=== PATIENT | female | born 1970 | race African-American/Black ===

== ENCOUNTER → 2017-09-17 | Outpatient (CLI) | payer OTHER ==
--- NOTE | 2017-09-17 09:45 | MM ---
Reason for exam: additional evaluation requested from abnormal screening. Last mammogram was performed 1 month ago. History: Took hormonal contraceptives for 5 years beginning at age 21. Physical Findings: Nurse did not find any significant physical abnormalities on exam. MG 3D Work Up W/Cad ALLYN Bilateral ML and spot compression CC view(s) were taken. Prior study comparison: August 29, 2017, bilateral MG screening mammo w CAD. April 03, 2015, bilateral MG screening mammo w CAD. There is no discrete abnormality including area of concern. These results were verbally communicated with the patient and result sheet given to the patient on 09/17/17. ASSESSMENT: Benign, BI-RAD 2 RECOMMENDATION: Return to routine screening mammogram schedule for both breasts.
== END | disposition home or self-care (01) ==
LOC: RADMAMWWP 07:35
PROVIDERS: ATTEND Family Medicine
DX: R92.8 Other abnormal and inconclusive findings on diagnostic imaging of breast (principal)
CPT/HCPCS: 77066; G0279

== ENCOUNTER → 2017-09-17 | Outpatient (CLI) | payer OTHER ==
--- NOTE | 2017-09-17 13:11 | BD ---
EXAMINATION TYPE: MG DEXA axial skeleton. DATE OF EXAM: 09/17/2017 COMPARISON: NONE CLINICAL HISTORY: Height: 5 FT 5 1/2 IN Weight: 161 FRAX RISK QUESTIONS: Alcohol (3 or more units per day): NO Family History (Parent hip fracture): NO Glucocorticoids (More than 3mos): NO (Ex: prednisone, prednisolone, methylprednisolone, dexamethasone, and hydrocortisone). History of Fracture in Adulthood: NO Secondary Osteoporosis: 1. Type 1 Diabetes: NO 2. Hyperthyroidism: YES (PARA) 3. Menopause before 45: NA 4. Malnutrition: NO 5. Chronic liver disease: NO Rheumatoid Arthritis: NO Current Tobacco Use: YES RISK FACTORS HISTORY OF: Active: YES Postmenopausal woman: NA If Premenopausal, do you have irregular periods: NO Hyperparathyroidism: YES MEDICATIONS: Thyroid Medications: YES Which medication: LEVOTHYROXINE How Lon YEARS Additional Medications: NORVASC, LISINOPRIL, METROPOLOL, LEVOTHYROXINE, BABY ASPIRIN, ADIVAN, TRASOD ONE,VIT D Additional History: EXAM MEASUREMENTS: Bone mineral densitometry was performed using the [facility]. Bone mineral density as measured about the Lumbar spine is: ----- L1-L4(G/cm2): 1.366 T Score Values are as follows: ----- L2: 1.6 ----- L3: 1.8 ----- L4: 1.2 ----- L1-L4: 1.6 BASELINE Bone mineral density about the R hip (g/cm2): 1.258 Bone mineral density about the L hip (g/cm2): 1.213 T Score values are as follows: -----R Neck: 1.6 -----L Neck: 1.3 -----R Total: 1.8 -----L Total: 1.7 BASELINE IMPRESSION: No evidence for osteoporosis or osteopenia. NOTE: T-SCORE=SD OF THE YOUNG ADULT MEAN.
== END | disposition home or self-care (01) ==
LOC: RADBDWWP 07:41
PROVIDERS: ATTEND Surgery
DX: E21.0 Primary hyperparathyroidism (principal)
CPT/HCPCS: 77080

== ENCOUNTER → 2018-01-29 | Outpatient (CLI) | payer OTHER ==
[2018-01-29 11:44] LABS: Basophils % (A) 1 %; Eosinophils # (A) 0.1 k/uL (0-0.7); Eosinophils % (A) 3 %; HCT 40.4 % (34.0-46.0); Lymphocytes # (A) 1.7 k/uL (1.0-4.8); Lymphocytes % (A) 38 %; MCH 29.8 pg (25.0-35.0); MCHC 32.3 g/dL (31.0-37.0); MCV 92.1 fL (80.0-100.0); Mean Platelet Volume 7.5; Monocytes # (A) 0.3 k/uL (0-1.0); Monocytes % (A) 6 %; Neutrophils # (A) 2.3 k/uL (1.3-7.7); Neutrophils % (A) 51 %; Platelet Count 227 k/uL (150-450); RBC 4.38 m/uL (3.80-5.40); RDW 13.8 % (11.5-15.5); WBC 4.5 k/uL (3.8-10.6)
== END | disposition home or self-care (01) ==
LOC: LABPAT 10:26
PROVIDERS: ATTEND Obstetrics & Gynecology Obstetrics
DX: Z01.812 Encounter for preprocedural laboratory examination (principal); I10 Essential (primary) hypertension; N92.0 Excessive and frequent menstruation with regular cycle; Z01.818 Encounter for other preprocedural examination
CPT/HCPCS: 36415; 85025; 93005

== ENCOUNTER 2018-02-09 07:48 | Day surgery (SDC) | payer OTHER ==
[2018-01-29 14:52] VITALS: BMI 26.8
--- NOTE | 2018-02-06 09:54 | P.HPOB ---
History of Present Illness H&P Date: 02/06/18 Chief Complaint: menorrhagia This is a pleasant 47yo female G0 that presents with c/o HMB. she states menses are regular in nature q month with a heavy flow, lasting 7 days with clots. she has a h/o of a tubal in the past. she also notes a h/o dysmenorrhea Review of Systems Constitutional: Denies chills, Denies fever Cardiovascular: Denies edema Respiratory: Denies cough, Denies dyspnea Gastrointestinal: Denies constipation, Denies diarrhea Genitourinary: Reports dysmenorrhea, Reports menorrhagia Menstruation: Reports as per HPI, Reports period heavy Past Medical History Past Medical History: Asthma, GERD/Reflux, Hypertension, Thyroid Disorder Additional Past Medical History / Comment(s): INSOMNIA, environmental asthma, small hiatal hernia, IBS, History of Any Multi-Drug Resistant Organisms: None Reported Past Surgical History: Hernia Repair, Orthopedic Surgery, Tubal Ligation Additional Past Surgical History / Comment(s): UMBILICAL AND VENTRAL HERNIAS. LEFT BUNIONECTOMY, LEFT FOOT 2 NEUROMA'S REMOVED, parathyroidectomy, Past Anesthesia/Blood Transfusion Reactions: Motion Sickness Smoking Status: Current every day smoker - Past Family History Mother Family Medical History: Cancer Additional Family Medical History / Comment(s): mult myeloma Brother(s) Family Medical History: Cancer Father Family Medical History: Cancer Daughter(s) Family Medical History: Deep Vein Thrombosis (DVT) Medications and Allergies Home Medications Medication Instructions Recorded Confirmed Type Levothyroxine Sodium [Synthroid] 62.5 mcg PO DAILY 06/21/14 01/29/18 History Aspirin [Adult Low Dose Aspirin EC] 81 mg PO DAILY 01/29/18 01/29/18 History Citracal Tab 2 tab PO DAILY 01/29/18 01/29/18 History Fluticasone Nasal [place] [Flonase 1 spray EA NOSTRIL DAILY PRN 01/29/18 01/29/18 History Nasal [place]] Lisinopril [Prinivil] 20 mg PO QAM 01/29/18 01/29/18 History QUEtiapine [SEROquel] 25 mg PO HS 01/29/18 01/29/18 History amLODIPine [Norvasc] 5 mg PO DAILY 01/29/18 01/29/18 History Allergies Allergy/AdvReac Type Severity Reaction Status Date / Time No Known Allergies Allergy Verified 01/29/18 14:40 Exam Osteopathic Statement: *. No significant issues noted on an osteopathic structural exam other than those noted in the History and Physical/Consult. - OBG Physical Exam Abdomen: soft and NT Abdomen: bowel sounds normal Vagina: normal pink rugae Cervix: normal in appearance with no lesions Uterus: normal size Anus/Rectum: normal perianal skin Assessment and Plan (1) Menorrhagia Status: Acute Code(s): N92.0 - EXCESSIVE AND FREQUENT MENSTRUATION WITH REGULAR CYCLE SNOMED Code(s): 756999975 (2) Dysmenorrhea Status: Acute Code(s): N94.6 - DYSMENORRHEA, UNSPECIFIED SNOMED Code(s): 305176374 Plan: plan H DC EA procedure reviewed and questions answered in detail. risk of uterine perforation noted
[~2018-02-09 07:48] MED LIST: DEXAMETHASONE SOD PHOSPHATE 10 MG/ML 1 ML VIAL IV ONE; HYDROmorphone 0.5 MG/0.5 ML SYRINGE IVP PRN; LACTATED RINGERS 1,000 ML IV SCH; LIDOCAINE 1% 20 ML VIAL (10MG/ML) FOR IV START INTRADERMA PRN; MIDAZOLAM 2 MG/2 ML VIAL IV PRN; MORPHINE SULFATE 2 MG/ML SYRINGE IV PRN; Pre Op ABX Message 1 EACH MISC MISCELLANE ONE; SCOPOLAMINE 1.5MG/72HR PATCH TRANSDERM ONE
[2018-02-09] MEDS ORDERED: LACTATED RINGERS 1,000 ML IV ONE (08:26)
[2018-02-09] MEDS ORDERED: ONDANSETRON 4 MG/2 ML VIAL IVP ONE (08:27)
[2018-02-09] MEDS ORDERED: DEXAMETHASONE SOD PHOSPHATE 4 MG/ML 1 ML VIAL IVP ONE (08:27)
[2018-02-09] MEDS ORDERED: MIDAZOLAM 2 MG/2 ML VIAL ONE (09:44)
[2018-02-09] MEDS ORDERED: PROPOFOL 10 MG/ML 20 ML VIAL IV ONE (09:44)
[2018-02-09] MEDS ORDERED: LIDOCAINE 1% INJ 10MG/ML (20 ML MDV) ONE (09:44)
[2018-02-09] MEDS ORDERED: KETOROLAC 30 MG/ML 1 ML VIAL ONE (09:44)
[2018-02-09] MEDS ORDERED: fentaNYL (PF) 50 MCG/ML 2 ML AMP ONE (09:44)
--- NOTE | 2018-02-09 10:10 | P.OP ---
Date of Procedure: 02/09/18 Preoperative Diagnosis: Menorrhagia Postoperative Diagnosis: Same Procedure(s) Performed: Hysteroscopy, dilation and curettage, endometrial ablation Anesthesia: MAC Surgeon: Demi Lambert Estimated Blood Loss (ml): 5 IV fluids (ml): 500 Urine output (ml): 75 Pathology: other (Endometrial curettings) Condition: stable Disposition: PACU Indications for Procedure: Heavy menstrual bleeding Operative Findings: Normal uterine cavity with proliferative appearing endometrium Description of Procedure: Patient was taken to the operating room after informed consent was obtained in the preoperative area. Patient was taken operating room where general anesthesia was obtained without difficulty by the anesthesia department. She was then prepped and draped in normal sterile fashion in the dorsal lithotomy position. O [place] catheter was then used to drain the bladder of clear yellow urine. A weighted speculum was placed in the posterior vaginal vault the anterior lip of the cervix is visualized and the endocervical canal was then dilated. Hysteroscope was performed and the above noted findings were visualized. At this point a sharp curettage was performed until gritty texture was noted in all 4 quadrants of the endometrial cavity. The endometrial ablation device NovaSure was opened and set the appropriate measurements 5 cm for length 2.64 with 72 power for a total cycle length of 105 seconds. After the device was placed the cavity assessment was completed and passed the cycle was allowed to complete and afterwards device was removed without difficulty. The single-tooth tenaculum was taken off of the anterior lip of the cervix and hemostasis was appreciated. patient tolerated procedure well ARE correct 2 patient was taken the recovery room awake in stable condition
[2018-02-09 10:23] VITALS: RESP 16; TEMP 97
[2018-02-09 11:39] VITALS: BP 163/98; PULSE 70
== END 2018-02-09 11:48 | disposition home or self-care (01) ==
LOC: OR 07:48
PROVIDERS: ATTEND Obstetrics & Gynecology Obstetrics
DX: N85.8 Other specified noninflammatory disorders of uterus (principal); N92.0 Excessive and frequent menstruation with regular cycle; N94.6 Dysmenorrhea, unspecified; I10 Essential (primary) hypertension; J45.909 Unspecified asthma, uncomplicated; F17.210 Nicotine dependence, cigarettes, uncomplicated; K21.9 Gastro-esophageal reflux disease without esophagitis; K58.9 Irritable bowel syndrome, unspecified; Z79.82 Long term (current) use of aspirin; Z79.899 Other long term (current) drug therapy; E89.0 Postprocedural hypothyroidism; Z98.51 Tubal ligation status
CPT/HCPCS: 81025; 88305; 58563; J2250; J1100; J2405; J2001; J3010; J1885; J2704; J1170

== ENCOUNTER → 2020-07-21 | Outpatient (CLI) | payer BC ==
--- NOTE | 2020-07-24 10:21 | MM ---
Reason for exam: screening (asymptomatic). Last mammogram was performed 2 years and 10 months ago. History: Took hormonal contraceptives for 5 years beginning at age 21. Physical Findings: A clinical breast exam by your physician is recommended on an annual basis and results should be correlated with mammographic findings. MG 3D Screening Mammo W/Cad Bilateral CC and MLO view(s) were taken. Prior study comparison: September 17, 2017, bilateral MG 3d work up w/cad ALLYN. August 29, 2017, bilateral MG screening mammo w CAD. The breast tissue is heterogeneously dense. This may lower the sensitivity of mammography. There is no discrete abnormality. No significant changes when compared with prior studies. ASSESSMENT: Negative, BI-RAD 1 RECOMMENDATION: Routine screening mammogram of both breasts in 1 year.
== END | disposition home or self-care (01) ==
LOC: RADMAMWWP 13:37
PROVIDERS: ATTEND Obstetrics & Gynecology Obstetrics
DX: Z12.31 Encounter for screening mammogram for malignant neoplasm of breast (principal)
CPT/HCPCS: 77063; 77067

== ENCOUNTER 2020-09-15 10:27 | Day surgery (SDC) | payer BC ==
[2020-09-11 10:31] VITALS: BMI 29.5
[~2020-09-15 10:27] MED LIST changes: -DEXAMETHASONE SOD PHOSPHATE 10 MG/ML 1 ML VIAL IV ONE; -HYDROmorphone 0.5 MG/0.5 ML SYRINGE IVP PRN; -LIDOCAINE 1% 20 ML VIAL (10MG/ML) FOR IV START INTRADERMA PRN; -MIDAZOLAM 2 MG/2 ML VIAL IV PRN; -MORPHINE SULFATE 2 MG/ML SYRINGE IV PRN; -Pre Op ABX Message 1 EACH MISC MISCELLANE ONE; -SCOPOLAMINE 1.5MG/72HR PATCH TRANSDERM ONE
[2020-09-15] MEDS ORDERED: LIDOCAINE 1% (10MG/ML) FOR IV START INTRADERMA ONE (11:14)
[2020-09-15 11:20] VITALS: TEMP 98.2
[2020-09-15] MEDS ORDERED: PROPOFOL 10 MG/ML 20 ML VIAL IV ONE (11:54)
--- NOTE | 2020-09-15 12:11 | P.PCN ---
Date of Procedure: 09/15/20 Procedure(s) Performed: BRIEF HISTORY: Patient is a 49-year-old pleasant female scheduled for an elective colonoscopy as a part of evaluation of prior history of colon polyps. Last colonoscopy was 6 years ago. PROCEDURE PERFORMED: Colonoscopy snare polypectomy. PREOPERATIVE DIAGNOSIS: History of colon polyps. IV sedation per Anesthesia. PROCEDURE: After informed consent was obtained, the patient, was brought into the endoscopy unit. IV sedation was administered by Anesthesia under continuous monitoring. Digital rectal examination was normal. Initially the Olympus CF-160 flexible video colonoscope was then inserted in the rectum, gradually advanced into the cecum without any difficulty. Careful examination was performed as the scope was gradually being withdrawn. Ileocecal valve and the appendiceal orifice were visualized and appeared normal. Prep was excellent. Mucosa of the cecum, ascending colon, transverse colon, descending colon, sigmoid colon, appeared normal. In the rectum and the sigmoid colon there were 4 small polyps measuring 5-6 cm in size removed by snare polypectomy. Rest of the Rectum appeared normal. Retroflexion was performed in the rectum and no lesions were seen. The patient tolerated the procedure well. IMPRESSION: 4 Small polyps measuring 5-6 mm in size in the proximal rectum and rectum sigmoidstatus post polypectomy Rest of the colon appeared normal. RECOMMENDATIONS: Findings of this examination were discussed with the patient as well as a family.. She was advised to follow with the biopsy results. If the biopsy shows an adenoma she can have a repeat colonoscopy in 5 years
[2020-09-15 12:22] VITALS: BP 133/85; PULSE 93; RESP 12
== END 2020-09-15 12:57 | disposition home or self-care (01) ==
LOC: ORWHC2ENDO 10:27
PROVIDERS: ATTEND Internal Medicine Gastroenterology
DX: Z12.11 Encounter for screening for malignant neoplasm of colon (principal); K62.1 Rectal polyp; Z86.010 Personal history of colon polyps; I10 Essential (primary) hypertension; J45.909 Unspecified asthma, uncomplicated; E11.9 Type 2 diabetes mellitus without complications; E07.9 Disorder of thyroid, unspecified; F41.9 Anxiety disorder, unspecified; F32.9 Major depressive disorder, single episode, unspecified; K21.9 Gastro-esophageal reflux disease without esophagitis; Z98.890 Other specified postprocedural states; Z79.890 Hormone replacement therapy; Z79.899 Other long term (current) drug therapy; Z98.51 Tubal ligation status
CPT/HCPCS: 81025; 88305; 45385; J2704

== ENCOUNTER → 2021-01-19 | Outpatient (CLI) | payer BC ==
--- NOTE | 2021-01-19 23:40 | MR ---
EXAMINATION TYPE: MR knee LT wo con DATE OF EXAM: 01/19/2021 COMPARISON: None HISTORY: Left knee pain x 2 years, prior volleyball injury. Multiplanar multiecho imaging of the left knee was performed without contrast. The anterior and posterior cruciate ligaments are intact. There is a mild knee joint effusion. There is small knee joint effusion. Patella tendon is intact. Patella is intact. The medial and lateral men isci have fairly normal signal pattern. I see no evidence for a tear. The joint spaces are fairly nor mal. The collateral ligaments are intact. I see no bony destructive process. There is minimal subcuta neous edema over the anterior patella tendon. IMPRESSION: There is a very small knee joint effusion. No evidence of meniscal or ligamentous tear.
== END | disposition home or self-care (01) ==
LOC: RADMRIMAIN 11:00
PROVIDERS: ATTEND Orthopaedic Surgery
DX: M25.462 Effusion, left knee (principal)

== ENCOUNTER → 2021-03-01 | Outpatient (CLI) | payer BC ==
[2021-03-01 10:28] LABS: Basophils # (A) 0.1 k/uL (0-0.2); Basophils % (A) 1 %; Eosinophils # (A) 0.1 k/uL (0-0.7); Eosinophils % (A) 2 %; HGB 14.4 gm/dL (11.4-16.0); Lymphocytes # (A) 2.2 k/uL (1.0-4.8); Lymphocytes % (A) 41 %; MCH 31.1 pg (25.0-35.0); MCHC 33.6 g/dL (31.0-37.0); MCV 92.7 fL (80.0-100.0); Mean Platelet Volume 7.7; Monocytes # (A) 0.3 k/uL (0-1.0); Monocytes % (A) 5 %; Neutrophils # (A) 2.6 k/uL (1.3-7.7); Neutrophils % (A) 48 %; Platelet Count 238 k/uL (150-450); RBC 4.63 m/uL (3.80-5.40); WBC 5.3 k/uL (3.8-10.6)
[2021-03-01 10:41] LABS: Potassium 4.2 mmol/L (3.5-5.1)
== END | disposition home or self-care (01) ==
LOC: LABPAT 09:19
PROVIDERS: ATTEND Orthopaedic Surgery
DX: Z01.812 Encounter for preprocedural laboratory examination (principal); M23.92 Unspecified internal derangement of left knee
CPT/HCPCS: 36415; 80051; 85025

== ENCOUNTER 2021-03-08 12:42 | Day surgery (SDC) | payer BC, OTHER ==
[2021-03-06 16:05] VITALS: BMI 29.3
--- NOTE | 2021-03-07 20:34 | HP ---
HISTORY AND PHYSICAL DATE OF SURGERY: 03/08/2021 Prerna Mead is a 50-year-old patient seen with progressive left knee pain. After treatment options were discussed it was decided to proceed with arthroscopy. Consent was obtained. PAST MEDICAL HISTORY: Hypothyroidism, hypertension. PAST SURGICAL HISTORY: Tubal ligation, foot surgery, herniorrhaphy, thyroidectomy. DAILY MEDICATIONS: Levothyroxine, losartan, Mobic, Norvasc, Xanax. ALLERGIES: None. SOCIAL HISTORY: Smokes half pack of cigarettes daily. PHYSICAL EVALUATION OF THE RIGHT KNEE: Range of motion 0 to 130. Mild effusion. Tenderness medial joint line. Positive medial Taylor's. Ligaments stable. Hip rotation without pain. Distal neurovascular exam intact. RADIOGRAPHS: Radiographs of the left knee reveal mild osteoarthritis. MRI left knee revealed a mild effusion. IMPRESSION: 1. Internal derangement of left knee with osteochondral tear. 2. Hypertension. 3. Hypothyroidism. PLAN: Left knee arthroscopy with chondroplasty and debridement. MMODL / IJN: [id number] /
[~2021-03-08 12:42] MED LIST changes: +DEXAMETHASONE SOD PHOSPHATE 4 MG/ML 1 ML VIAL IV ONE; +LIDOCAINE 1% (10MG/ML) FOR IV START INTRADERMA PRN; +ONDANSETRON 4 MG/2 ML VIAL IVP ONE
[2021-03-08] MEDS ORDERED: ONDANSETRON 4 MG/2 ML VIAL ONE (13:10)
[2021-03-08] MEDS ORDERED: SCOPOLAMINE 1.5MG/72HR PATCH TRANSDERM ONE (13:13)
[2021-03-08] MEDS ORDERED: MIDAZOLAM 2 MG/2 ML VIAL IVP ONE ×2 (13:15→13:17)
[2021-03-08] MEDS ORDERED: MIDAZOLAM 2 MG/2 ML VIAL ONE (13:38)
[2021-03-08] MEDS ORDERED: LIDOCAINE 1% INJ 10MG/ML (20 ML MDV) ONE (13:38)
[2021-03-08] MEDS ORDERED: fentaNYL (PF) 50 MCG/ML 2 ML AMP ONE (13:38)
[2021-03-08] MEDS ORDERED: KETOROLAC 15 MG/ML 1 ML VIAL ONE (13:38)
[2021-03-08] MEDS ORDERED: PROPOFOL 10 MG/ML 20 ML VIAL IV ONE (13:38)
[2021-03-08] MEDS ORDERED: BUPIVACAINE (PF) 0.25% 30 ML VIAL SQ ONE ×2 (13:39→14:09)
[2021-03-08 14:26] VITALS: TEMP 97
--- NOTE | 2021-03-08 14:28 | P.OP ---
Date of Procedure: 03/08/21 Preoperative Diagnosis: Internal derangement left knee Postoperative Diagnosis: 1. Tear medial meniscus left knee 2. Reactive synovitis medial, lateral and suprapatellar compartments left knee Procedure(s) Performed: 1. Arthroscopic partial medial meniscectomy left knee 2. Arthroscopic partial synovectomy medial, lateral and suprapatellar compartments left knee Anesthesia: GABBY, local Surgeon: Fco Wan Estimated Blood Loss (ml): 8 Pathology: none sent Condition: stable Disposition: PACU Indications for Procedure: 50-year-old patient seen with progressive left knee pain. After having treatment options discussed, she elected to proceed with arthroscopy. Operative Findings: See description of procedure Description of Procedure: Patient was taken to the operative suite. Patient underwent a general anesthe tic by the department of anesthesia. Patient was given preoperative antibiotics. The left lower extremity was placed in a well-padded arthroscopic leg boston. The left leg was prepped and draped in the normal sterile orthopedic fashion. A lateral parapatellar and suprapatellar incision was made. Trochars were inserted. Arthroscopy was initiated. Suprapatellar pouch revealed diffuse thick reactive synovitis. The patellofemoral joint appeared to articulate congruently. There was no significant chondromalacia present. The scope was guided into the medial gutter. No loose bodies or plica were identified. The scope was then guided into the medial compartment. A medial parapatellar incision was made. Trocar inserted followed by probe. There was a radial tear posterior horn medial meniscus. There was no significant chondromalacia involving the medial compartment. There was some thick reactive synovitis anteriorly. I performed a partial medial meniscectomy getting down to stable meniscal tissue. I performed a partial synovectomy decompressing the thick reactive synovitis. The shaver was removed. The residual meniscus was stable. There was good decompression of the synovitis. Scope and probe were then guided into the intercondylar notch. Cruciates were identified, probed and found to be stable. The scope and probe were then guided into lateral compartment. The lateral meniscus was probed and found to be stable. There was some reactive synovitis anteriorly. I introduced a motorized shaver and performed a partial synovectomy. The shaver was removed. There was good decompression synovitis. The scope was in guided back into the suprapatellar compartment. I introduced a motorized shaver into the suprapatellar compartment. I debrided some piecemeal fragments of meniscus I encountered. I performed a partial synovectomy. The shaver was removed. There was good decompression of the synovitis. I took one more look around the entire knee, no residual debris. Instruments were now removed from the joint. The joint was infiltrated with .25% Marcaine. Steri-Strips were applied to the portal sites. Sterile dressings were applied. The patient was placed into a DEL hose. No tourniquet was utilized. The patient was awakened, transferred to a bed and taken to recovery stable satisfactory condition.
[2021-03-08 15:03] VITALS: RESP 18
[2021-03-08] MEDS ORDERED: HYDROcodone/APAP 5-325MG 1 EACH TAB ONE (15:29)
[2021-03-08] MEDS ORDERED: HYDROcodone/APAP 5-325MG 1 EACH TAB PO ONE (15:29)
[2021-03-08 15:53] VITALS: BP 145/78; PULSE 73
== END 2021-03-08 16:10 | disposition home or self-care (01) ==
LOC: OR 12:42
PROVIDERS: ATTEND Orthopaedic Surgery
DX: M23.204 Derangement of unspecified medial meniscus due to old tear or injury, left knee (principal); M65.862 Other synovitis and tenosynovitis, left lower leg; E03.9 Hypothyroidism, unspecified; I10 Essential (primary) hypertension; Z98.51 Tubal ligation status; E89.0 Postprocedural hypothyroidism; Z98.890 Other specified postprocedural states; F17.210 Nicotine dependence, cigarettes, uncomplicated; Z79.890 Hormone replacement therapy; Z79.1 Long term (current) use of non-steroidal anti-inflammatories (NSAID); Z79.899 Other long term (current) drug therapy
CPT/HCPCS: 81025; 29881; 29876; J2250; J1100; J0690; J2405; J2001; J3010; J1885; J2704

== ENCOUNTER → 2021-07-05 | Outpatient (CLI) | payer OTHER ==
--- NOTE | 2021-07-05 11:39 | US ---
EXAMINATION TYPE: US thyroid st tissue head/neck DATE OF EXAM: 07/05/2021 COMPARISON: NONE CLINICAL HISTORY: R22.0 Lump/mass/swelling neck. Patient stated had parathyroid nodule removed 2017; c/o palpable right of anterior midline neck; takes Levothyroxine. GLAND SIZE: Right Lobe: 5.7 x 2.3 x 1.8 cm Overall Parenchyma: homogenous Left Lobe: 5.5 x 1.7 x 1.9 cm Overall Parenchyma: homogeneous Isthmus Thickness: 0.5 cm NODULES RIGHT: # of nodules measured on right: 1 1. 0.2 X 0.2 x 0.2 cm, upper pole, spongiform, hypoechoic nodule, which is wide as is tall, with il l-defined margins, without echogenic foci. LEFT: # of nodules measured on left: 0 ISTHMUS: # of nodules measured in the isthmus: 0 Lobular extension of right isthmus is noted superiorly and is at patient's area of soft tissue palpab le. See images # 25 through # 29 and images #55 and 56. Bilateral neck scanned: superior to right thyroid a lymph node is seen =1.8 x 0.6 x 0.5cm; inferior t o left thyroid a lymph node is seen = 0.8 x 0.8 x 0.5cm. IMPRESSION: 1. Thyroid glandular enlargement. 2. Subcentimeter nodularity as discussed.
== END | disposition home or self-care (01) ==
LOC: RADUSWWP 09:30
PROVIDERS: ATTEND Internal Medicine
DX: E04.2 Nontoxic multinodular goiter (principal)
CPT/HCPCS: 76536

== ENCOUNTER → 2021-10-08 | Outpatient (CLI) | payer OTHER ==
[2021-10-08 15:12] LABS: African American GFR (CKD) 85.7 (60.0-200.0); Albumin/Globulin Ratio 1.45 (1.60-3.17); Anion Gap 11.5 mmol/L (10.00-18.00); BUN/Creat Ratio 7.23 Ratio (12.00-20.00); Blood Urea Nitrogen 6.6 mg/dL (9.0-27.0); Calcium 9.1 mg/dL (8.7-10.3); Globulin 2.8 g/dL (1.6-3.3); Non-African American GFR(CKD) 73.9 (60.0-200.0); Potassium 4.1 mmol/L (3.5-5.5); T4, Free (Free Thyroxine) 1.23 ng/dL (0.800-1.800); Total Bilirubin 0.3 mg/dL (0.30-1.20); Total Protein 6.7 g/dL (6.2-8.2)
== END | disposition home or self-care (01) ==
LOC: LABWHC1 08:26
PROVIDERS: ATTEND Internal Medicine Endocrinology, Diabetes & Metabolism
DX: E21.0 Primary hyperparathyroidism (principal); E04.1 Nontoxic single thyroid nodule
CPT/HCPCS: 36415; 80053; 82306; 83970; 84439; 84443

== ENCOUNTER → 2021-12-17 | Outpatient (CLI) | payer OTHER ==
--- NOTE | 2021-12-18 11:48 | MM ---
Reason for exam: screening (asymptomatic). Last mammogram was performed 1 year and 5 months ago. History: Took hormonal contraceptives for 5 years beginning at age 21. Physical Findings: A clinical breast exam by your physician is recommended on an annual basis and results should be correlated with mammographic findings. MG 3D Screening Mammo W/Cad Bilateral CC and MLO view(s) were taken. Prior study comparison: July 21, 2020, bilateral MG 3d screening mammo w/cad. September 17, 2017, bilateral MG 3d work up w/cad ALLYN. There are scattered fibroglandular densities. There is no discrete abnormality. No significant changes when compared with prior studies. ASSESSMENT: Negative, BI-RAD 1 RECOMMENDATION: Routine screening mammogram of both breasts in 1 year.
== END | disposition home or self-care (01) ==
LOC: RADMAMWWP 09:47
PROVIDERS: ATTEND Obstetrics & Gynecology Obstetrics
DX: Z12.31 Encounter for screening mammogram for malignant neoplasm of breast (principal)
CPT/HCPCS: 77063; 77067

== ENCOUNTER → 2022-05-09 | Outpatient (CLI) | payer OTHER ==
--- NOTE | 2022-05-09 12:15 | US ---
EXAMINATION TYPE: US thyroid st tissue head/neck DATE OF EXAM: 05/09/2022 COMPARISON: Thyroid JULY 05, 2021 CLINICAL HISTORY: E04.1 Nontoxic single thyroid nodule. f/u GLAND SIZE: Right Lobe: 5.4 x 1.5 x 2.4 cm Overall Parenchyma: homogenous Left Lobe: 5.1 x 1.6 x 2.4 cm Overall Parenchyma: homogeneous Isthmus Thickness: 0.4 cm NODULES RIGHT: # of nodules measured on right: 0 LEFT: # of nodules measured on left: 0 ISTHMUS: # of nodules measured in the isthmus: 0 Bilateral neck scanned, no evidence of lymphadenopathy. Homogeneous normal-sized thyroid without suspicious greater than 5 mm solid or cystic nodule. IMPRESSION: As above. No significant change from prior.
== END | disposition home or self-care (01) ==
LOC: RADUSWWP 10:52
PROVIDERS: ATTEND Internal Medicine Endocrinology, Diabetes & Metabolism
DX: E04.1 Nontoxic single thyroid nodule (principal)
CPT/HCPCS: 76536

== ENCOUNTER → 2022-05-30 | Outpatient (CLI) | payer OTHER ==
[2022-05-30 11:10] LABS: ALT 10 U/L (8-44); AST 21 U/L (13-35); African American GFR (CKD) 100.3 (60.0-200.0); Albumin 3.8 g/dL (3.8-4.9); Albumin/Globulin Ratio 1.52 (1.60-3.17); Alkaline Phosphatase 92 U/L (41-126); BUN/Creat Ratio 10.88 Ratio (12.00-20.00); Blood Urea Nitrogen 8.7 mg/dL (9.0-27.0); Calcium 8.7 mg/dL (8.7-10.3); Carbon Dioxide 24.2 mmol/L (20.0-27.5); Chloride 105 mmol/L (96-109); Globulin 2.5 g/dL (1.6-3.3); Glucose 116 mg/dL (70-110); Non-African American GFR(CKD) 86.6 (60.0-200.0); Potassium 3.7 mmol/L (3.5-5.5); Sodium 138 mmol/L (135-145); Total Bilirubin <0.15 mg/dL (0.30-1.20); Total Protein 6.3 g/dL (6.2-8.2)
== END | disposition home or self-care (01) ==
LOC: LABWHC1 07:46
PROVIDERS: ATTEND Internal Medicine Endocrinology, Diabetes & Metabolism
DX: E04.2 Nontoxic multinodular goiter (principal); E21.0 Primary hyperparathyroidism
CPT/HCPCS: 36415; 80053; 82306; 83970; 84439; 84443

== ENCOUNTER 2022-07-18 14:21 | Emergency (ER) | payer BC, OTHER ==
[2022-07-18] MEDS ORDERED: LABETALOL 100 MG TAB PO STA (17:36)
[2022-07-18] MEDS ORDERED: SODIUM CHLORIDE 0.9% 1,000 ML IV STA (17:37)
[2022-07-18] MEDS ORDERED: KETOROLAC 15 MG/ML 1 ML VIAL IVP STA (17:37)
[2022-07-18] MEDS ORDERED: diphenhydrAMINE 50 MG/ML 1 ML VIAL IVP STA (17:37)
[2022-07-18] MEDS ORDERED: PROCHLORPERAZINE INJ 10 MG/2 ML VIAL IVP STA (17:37)
--- NOTE | 2022-07-18 17:45 | ED ---
General Adult HPI - General Chief complaint: Headache Stated complaint: R ear pain,Nausea Time Seen by Provider: 07/18/22 17:25 Source: patient, RN notes reviewed, old records reviewed Mode of arrival: ambulatory Limitations: no limitations - History of Present Illness Initial comments: Patient is a 51-year-old female with past medical history remarkable for hypertension, anxiety presents emergency Department complaining of not feeling well for last 4 days. States she is a generalized feeling of illness over the last 3 days. Is under a lot of stress currently, as well as multiple family members are ill. She ran out of her labetalol 100 mg twice a day blood pressure medication and has not been taking for the last 5 days. I currently feeling and ear fullness sensation on the right side along with a mild headache around that site. Denies sore throat. Endorses mild nasal congestion. Denies cough. Denies chest pain. Does endorse mild nausea. Denies any sick contacts. To go home Covid test that was negative but was brought here for further evaluation of this time with other family members. She is no other acute complaints. No visu al deficits. No weakness or numbness. - Related Data Home Medications Medication Instructions Recorded Confirmed Levothyroxine Sodium [Synthroid] 62.5 mcg PO QAM 06/21/14 03/06/21 Aspirin [Adult Low Dose Aspirin EC] 81 mg PO DAILY 01/29/18 03/06/21 ALPRAZolam [Xanax] 1 mg PO BID 09/11/20 03/06/21 Albuterol Inhaler [Ventolin Hfa 1 puff INHALATION DIRECTED PRN 09/11/20 03/08/21 Inhaler] Ergocalciferol [Vitamin D2] 50,000 unit PO Q30D 09/11/20 03/08/21 Losartan Potassium 100 mg PO QAM 09/11/20 03/06/21 Mirtazapine [Remeron] 15 mg PO HS 09/11/20 03/06/21 amLODIPine [Norvasc] 10 mg PO QAM 09/11/20 03/06/21 atenoloL 12.5 mg PO HS 03/06/21 03/08/21 Previous Rx's Medication Instructions Recorded HYDROcodone/APAP 5-325MG [[place] 1 tab PO Q6HR PRN #21 tab 03/08/21 5-325] Labetalol [Trandate] 100 mg PO BID 28 Days #56 tablet 07/18/22 Allergies Allergy/AdvReac Type Severity Reaction Status Date / Time No Known Allergies Allergy Verified 07/18/22 14:55 Review of Systems ROS Statement: Those systems with pertinent positive or pertinent negative responses have been documented in the HPI. Review of Systems: CONST: Denies fever EYES: Denies blurry vision ENT: Endorses right ear fullness sensation, mild headache C/V: Denies Chest pain RESP: Denies shortness of breath GI: Denies abdominal pain : Denies dysuria SKIN: Denies rash. MSK: Denies joint pain. NEURO: Endorses mild headache. Not the worse headache of her life. ROS Other: All systems not noted in ROS Statement are negative. Past Medical History Past Medical History: Asthma, GERD/Reflux, Hypertension, Thyroid Disorder Additional Past Medical History / Comment(s): left knee injury,cyst posterior left kneeCERVICAL DDD, ARTHRITIS BACK PAIN., IBS WITH CONSTIPATION, HX COLON POLYPS. History of Any Multi-Drug Resistant Organisms: None Reported Past Surgical History: Hernia Repair, Orthopedic Surgery, Tubal Ligation, Uterine Ablation Additional Past Surgical History / Comment(s): UMBILICAL AND VENTRAL HERNIAS. LEFT BUNIONECTOMY, LEFT FOOT 2 NEUROMA'S REMOVED Past Anesthesia/Blood Transfusion Reactions: No Reported Reaction, Motion Sickness Past Psychological History: Anxiety, Depression Smoking Status: Current some day smoker Past Alcohol Use History: None Reported Past Drug Use History: Marijuana - Past Family History Mother Family Medical History: Cancer Brother(s) Family Medical History: Cancer Father Family Medical History: Cancer Daughter(s) Family Medical History: Deep Vein Thrombosis (DVT) General Exam - General Exam Comments Initial Comments: General: Appears in no acute distress. HEAD: Normal with no signs of head trauma. EYES: PERRLA, EOMI, conjunctiva normal, no discharge. Pupils are 3 mm and equal bilaterally. ENT: Hearing grossly intact, normal oropharynx. Bilateral tympanic membranes are within acceptable limits. RESPIRATORY: Clear breath sounds bilaterally. No wheezes, rales, or rhonchi. C/V: Regular rate and rhythm. S1 and S2 auscultated, no edema, peripheral pulses 2+ and intact throughout ABD: Abd is soft, nontender, nondistended EXT: Normal range of motion, no obvious deformity SKIN: No rashes or lesions observed on exposed skin. NEURO: Alert and oriented x 4. Cranial nerves II-XII intact. No focal sensory or strength deficits. Limitations: no limitations Course Vital Signs 07/18/22 07/18/22 14:53 19:21 Temperature 98.4 F 98.3 F Pulse Rate 102 H 87 Respiratory 20 16 Rate Blood Pressure 198/102 160/91 O2 Sat by Pulse 98 99 Oximetry Medical Decision Making - Medical Decision Making Based on the patient's presentation and physical exam, I do believe she is having right ear sensation related to possible viral illness at this time. She is also hypertensive but has been without her labetalol blood pressure medication over the last 5 days. Chest is mild headache. We will obtain basic laboratory studies which she is concerned she is dehydrated and she will receive basic electrolytes as well. She was in agreement this plan. She will be symptomatically treated with IV analgesia medications, fluids. She will be given a dose of her home labetalol. She was in agreement this plan. The remainder of the vital signs are within acceptable limits. Covid and flu swabs will be obtained. Patient's laboratory studies are all within normal limits. Covid influenza negative. Screening EKG shows no signs of acute ischemia. On reevaluation, patient is feeling improved. Patient's blood pressure is improved. I updated her on her workup. She would like to go home. I believe this is reasonable. Strict return precautions were discussed. She'll be given a prescription for her home labetalol. She was in agreement with this plan. I will provide the patient with a prescription for labetalol 100 mg twice a day. I instructed the patient to follow up with their PCP in the next 1-3 days. I explained that the patient should return to the emergency department if they experience any worsening symptoms. Strict return precautions were discussed with the patient. The patient expressed understanding of these instructions. I answered all questions that the patient had. The patient was discharged home in good condition with their prescriptions and follow up information. - Lab Data Result diagrams: 07/18/22 17:54 07/18/22 17:54 Lab Results 07/18/22 07/18/22 07/18/22 Range/Units 17:54 17:54 17:54 WBC 4.3 (3.8-10.6) k/uL RBC 4.58 (3.80-5.40) m/uL Hgb 14.6 (11.4-16.0) gm/dL Hct 41.4 (34.0-46.0) % MCV 90.3 (80.0-100.0) fL MCH 31.9 (25.0-35.0) pg MCHC 35.3 (31.0-37.0) g/dL RDW 12.7 (11.5-15.5) % Plt Count 252 (150-450) k/uL MPV 8.3 Neutrophils % 55 % Lymphocytes % 37 % Monocytes % 4 % Eosinophils % 1 % Basophils % 0 % Neutrophils # 2.4 (1.3-7.7) k/uL Lymphocytes # 1.6 (1.0-4.8) k/uL Monocytes # 0.2 (0-1.0) k/uL Eosinophils # 0.0 (0-0.7) k/uL Basophils # 0.0 (0-0.2) k/uL Sodium 138 (137-145) mmol/L Potassium 3.5 (3.5-5.1) mmol/L Chloride 107 (98-107) mmol/L Carbon Dioxide 23 (22-30) mmol/L Anion Gap 8 mmol/L BUN 8 (7-17) mg/dL Creatinine 0.70 (0.52-1.04) mg/dL Est GFR (CKD-EPI)AfAm >90 (>60 ml/min/1.73 sqM) Est GFR (CKD-EPI)NonAf >90 (>60 ml/min/1.73 sqM) Glucose 89 (74-99) mg/dL Calcium 9.3 (8.4-10.2) mg/dL Coronavirus (PCR) (Not Detectd) Influenza Type A RNA Not Detected (Not Detectd) Influenza Type B (PCR) Not Detected (Not Detectd) 07/18/22 Range/Units 17:54 WBC (3.8-10.6) k/uL RBC (3.80-5.40) m/uL Hgb (11.4-16.0) gm/dL Hct (34.0-46.0) % MCV (80.0-100.0) fL MCH (25.0-35.0) pg MCHC (31.0-37.0) g/dL RDW (11.5-15.5) % Plt Count (150-450) k/uL MPV Neutrophils % % Lymphocytes % % Monocytes % % Eosinophils % % Basophils % % Neutrophils # (1.3-7.7) k/uL Lymphocytes # (1.0-4.8) k/uL Monocytes # (0-1.0) k/uL Eosinophils # (0-0.7) k/uL Basophils # (0-0.2) k/uL Sodium (137-145) mmol/L Potassium (3.5-5.1) mmol/L Chloride (98-107) mmol/L Carbon Dioxide (22-30) mmol/L Anion Gap mmol/L BUN (7-17) mg/dL Creatinine (0.52-1.04) mg/dL Est GFR (CKD-EPI)AfAm (>60 ml/min/1.73 sqM) Est GFR (CKD-EPI)NonAf (>60 ml/min/1.73 sqM) Glucose (74-99) mg/dL Calcium (8.4-10.2) mg/dL Coronavirus (PCR) Not Detected (Not Detectd) Influenza Type A RNA (Not Detectd) Influenza Type B (PCR) (Not Detectd) - EKG Data -: EKG Interpreted by Me EKG Comments: 12-lead Electrocardiogram Interpretation Note EKG was reviewed and interpreted by myself. 12-lead ECG performed at 1758 is interpreted by me as revealing normal sinus rhythm at a rate of 82 beats per minute. [place] is normal. ME interval is 142 ms, QRS durations 84 ms, QTc is 403 ms.. There were no ST or T wave abnormalities to suggest myocardial ischemia or injury. R wave progression across the precordium was satisfactory. By my interpretation this EKG is non-diagnostic for acute ischemia. Disposition Clinical Impression: Hypertension, Ear pressure Disposition: HOME SELF-CARE Condition: Good Instructions (If sedation given, give patient instructions): Hypertension (ED) Prescriptions: Labetalol [Trandate] 100 mg PO BID 28 Days #56 tablet Is patient prescribed a controlled substance at d/c from ED?: No Referrals: None,Stated [Primary Care Provider] - 1-2 days Time of Disposition: 19:35
[2022-07-18 18:07] LABS: Basophils % (A) 0 %; Eosinophils % (A) 1 %; HCT 41.4 % (34.0-46.0); HGB 14.6 gm/dL (11.4-16.0); Lymphocytes # (A) 1.6 k/uL (1.0-4.8); Lymphocytes % (A) 37 %; MCH 31.9 pg (25.0-35.0); MCHC 35.3 g/dL (31.0-37.0); MCV 90.3 fL (80.0-100.0); Mean Platelet Volume 8.3; Monocytes # (A) 0.2 k/uL (0-1.0); Monocytes % (A) 4 %; Neutrophils # (A) 2.4 k/uL (1.3-7.7); Neutrophils % (A) 55 %; Platelet Count 252 k/uL (150-450); RBC 4.58 m/uL (3.80-5.40); RDW 12.7 % (11.5-15.5); WBC 4.3 k/uL (3.8-10.6)
[2022-07-18 18:18] LABS: African American GFR (CKD) >90 (>60 ml/min/1.73 sqM); Anion Gap 8 mmol/L; Blood Urea Nitrogen 8 mg/dL (7-17); Calcium 9.3 mg/dL (8.4-10.2); Carbon Dioxide 23 mmol/L (22-30); Chloride 107 mmol/L (98-107); Glucose 89 mg/dL (74-99); Non-African American GFR(CKD) >90 (>60 ml/min/1.73 sqM); Potassium 3.5 mmol/L (3.5-5.1); Sodium 138 mmol/L (137-145)
[2022-07-18 19:22] VITALS: BP 160/91; PULSE 87; RESP 16
[2022-07-18 19:23] VITALS: TEMP 98.3
== END 2022-07-18 20:10 | disposition home or self-care (01) ==
LOC: EC 14:21
DX: I10 Essential (primary) hypertension (principal); H93.91 Unspecified disorder of right ear; J45.909 Unspecified asthma, uncomplicated; K21.9 Gastro-esophageal reflux disease without esophagitis; E07.9 Disorder of thyroid, unspecified; F41.9 Anxiety disorder, unspecified; F32.A Depression, unspecified; F12.90 Cannabis use, unspecified, uncomplicated; Z79.82 Long term (current) use of aspirin; Z79.51 Long term (current) use of inhaled steroids; Z20.822 Contact with and (suspected) exposure to COVID-19
CPT/HCPCS: 36415; 93005; 80048; 85025; 87502; 87635; 99283; 96374; 96375 ×2; 96361; J1200; J0780; J1885

== ENCOUNTER → 2022-10-01 | Outpatient (CLI) | payer BC ==
[2022-10-01 10:21] LABS: Basophils # (A) 0.05 X 10*3/uL (0.00-0.10); Basophils % (A) 1.3 %; Eosinophils # (A) 0.06 X 10*3/uL (0.04-0.35); Eosinophils % (A) 1.6 %; HCT 40.9 % (37.2-46.3); HGB 13.7 g/dL (12.0-15.0); Immature Grans, Automated 0.3 %; Lymphocytes # (A) 1.38 X 10*3/uL (0.90-5.00); Lymphocytes % (A) 35.8 %; MCH 30.9 pg (27.0-32.0); MCHC 33.5 g/dL (32.0-37.0); MCV 92.3 fL (80.0-97.0); Mean Platelet Volume 10.9 fL (9.5-12.2); Monocytes # (A) 0.28 X 10*3/uL (0.20-1.00); Monocytes % (A) 7.3 %; NRBC Per 100 WBC 0 /100 WBCS (0.0-0.0); Neutrophils # (A) 2.08 X 10*3/uL (1.80-7.70); Neutrophils % (A) 53.7 %; Platelet Count 289 X 10*3/uL (140-440); RBC 4.43 X 10*6/uL (4.10-5.20); RDW 13.3 % (11.5-14.5); WBC 3.86 X 10*3/uL (4.50-10.00)
== END | disposition home or self-care (01) ==
LOC: LABPAT 07:06
PROVIDERS: ATTEND Obstetrics & Gynecology Obstetrics
DX: Z01.818 Encounter for other preprocedural examination (principal); I10 Essential (primary) hypertension; N85.7 Hematometra; R10.2 Pelvic and perineal pain
CPT/HCPCS: 85025; 93005

== ENCOUNTER 2022-10-07 07:45 | Day surgery (SDC) | payer BC ==
[2022-10-02 15:55] VITALS: BMI 28.0
[~2022-10-07 07:45] MED LIST changes: +HYDROmorphone 0.5 MG/0.5 ML SYRINGE IVP PRN; +MIDAZOLAM 2 MG/2 ML VIAL IV PRN; +Pre Op ABX Message 1 EACH MISC MISCELLANE ONE
[2022-10-07 08:18] VITALS: RESP 16
[2022-10-07] MEDS ORDERED: SCOPOLAMINE 1 MG/72 HR PATCH TRANSDERM ONE (08:31)
[2022-10-07] MEDS ORDERED: MIDAZOLAM 2 MG/2 ML VIAL ONE (09:12)
[2022-10-07] MEDS ORDERED: LIDOCAINE 2% INJ 20 MG/ML (2 ML VIAL) ONE (09:12)
[2022-10-07] MEDS ORDERED: fentaNYL (PF) 50 MCG/ML 2 ML AMP ONE (09:12)
[2022-10-07] MEDS ORDERED: PROPOFOL 10 MG/ML 20 ML VIAL IV ONE (09:12)
[2022-10-07] MEDS ORDERED: KETOROLAC 15 MG/ML 1 ML VIAL ONE (09:12)
[2022-10-07 09:52] VITALS: TEMP 96.8
--- NOTE | 2022-10-07 09:54 | P.OP ---
Date of Procedure: 10/07/22 Preoperative Diagnosis: Pelvic pain, hematometra Postoperative Diagnosis: Same Procedure(s) Performed: Hysteroscopy, dilation and curettage Anesthesia: MAC Surgeon: Demi Lambert Estimated Blood Loss (ml): 5 IV fluids (ml): 500 Urine output (ml): 100 Pathology: other (Endometrial curettings) Condition: stable Disposition: PACU Indications for Procedure: 51-year-old female status post endometrial ablation years ago with increasing pelvic pain. Patient had transvaginal ultrasound revealing a fluid collection concerning for her menometrorrhagia. Patient was counseled on options, and she elected hysteroscopy, dilation and curettage. Risks of procedure were reviewed with patient including uterine perforation given her prior endometrial ablation and risk for cervical stenosis. Patient stated understanding and wishes to proceed. Operative Findings: Stenotic cervix with uterine scarring appreciated consistent with Asherman syndrome and prior endometrial ablation Description of Procedure: Patient was taken back to the operating suite where general anesthesia was obtained without difficulty by the anesthesia department. Patient was prepped and draped in the dorsal lithotomy position. Red rubber catheter was used to drain the bladder of clear yellow urine. A weighted speculum was placed in the posterior vaginal vault intralipids the cervix was visualized and grasped with a single-tooth tenaculum. Endocervical canal was then serially dilated and hysteroscope was placed intact cavity was appreciated with scarring noted. No fluid collection was appreciated. The hysteroscope was removed and a gentle curettage was performed this specimen was then sent to pathology for analysis. The cecal tooth tenaculum was taken off of the anterior lip of the cervix h emostasis was appreciated. All instruments were removed from the patient's vaginal vault. All counts were noted be correct 2. Patient was taken the recovery room awake in stable condition.
[2022-10-07 11:10] VITALS: BP 144/81; PULSE 78
== END 2022-10-07 11:18 | disposition home or self-care (01) ==
LOC: OR 07:45
PROVIDERS: ATTEND Obstetrics & Gynecology Obstetrics
DX: N85.8 Other specified noninflammatory disorders of uterus (principal); N85.7 Hematometra; I10 Essential (primary) hypertension; J45.909 Unspecified asthma, uncomplicated; E07.9 Disorder of thyroid, unspecified; F41.9 Anxiety disorder, unspecified; F32.A Depression, unspecified; M19.90 Unspecified osteoarthritis, unspecified site; M50.30 Other cervical disc degeneration, unspecified cervical region; K21.9 Gastro-esophageal reflux disease without esophagitis; F17.210 Nicotine dependence, cigarettes, uncomplicated; Z79.82 Long term (current) use of aspirin; Z79.890 Hormone replacement therapy; Z79.899 Other long term (current) drug therapy; Z79.51 Long term (current) use of inhaled steroids
CPT/HCPCS: 81025; 58558; J2250; J1100; J2405; J3010; J1885; J2704; J1170; J2001; 88305

== ENCOUNTER → 2022-12-06 | Outpatient (CLI) | payer BC ==
[2022-12-06 10:57] LABS: Basophils # (A) 0.03 X 10*3/uL (0.00-0.10); Basophils % (A) 0.8 %; Eosinophils # (A) 0.04 X 10*3/uL (0.04-0.35); HCT 40.3 % (37.2-46.3); HGB 13.9 g/dL (12.0-15.0); Immature Grans, Automated 0.3 %; Lymphocytes # (A) 1.35 X 10*3/uL (0.90-5.00); Lymphocytes % (A) 34.4 %; MCH 30.9 pg (27.0-32.0); MCHC 34.5 g/dL (32.0-37.0); MCV 89.6 fL (80.0-97.0); Mean Platelet Volume 11.1 fL (9.5-12.2); Monocytes # (A) 0.39 X 10*3/uL (0.20-1.00); Monocytes % (A) 9.9 %; NRBC Per 100 WBC 0 /100 WBCS (0.0-0.0); Neutrophils % (A) 53.6 %; Platelet Count 249 X 10*3/uL (140-440); RDW 13.2 % (11.5-14.5); WBC 3.92 X 10*3/uL (4.50-10.00)
[2022-12-06 11:11] LABS: ALT 12 U/L (8-44); AST 19 U/L (13-35); African American GFR (CKD) 95.9 (60.0-200.0); Albumin 4.2 g/dL (3.8-4.9); Albumin/Globulin Ratio 1.71 (1.60-3.17); Alkaline Phosphatase 82 U/L (41-126); Blood Urea Nitrogen 6.9 mg/dL (9.0-27.0); Calcium 9.3 mg/dL (8.7-10.3); Carbon Dioxide 22.5 mmol/L (20.0-27.5); Chloride 105 mmol/L (96-109); Chol/HDL Ratio 3.54 Ratio; Follicle Stimulating Hormone 2.7 mIU/mL; Globulin 2.5 g/dL (1.6-3.3); Glucose 103 mg/dL (70-110); LDL Cholesterol,Calculated 126.8 mg/dL (0.0-131.0); Non-African American GFR(CKD) 82.7 (60.0-200.0); Potassium 4.1 mmol/L (3.5-5.5); Sodium 141 mmol/L (135-145); Total Protein 6.7 g/dL (6.2-8.2); VLDL Calculation 15.16 mg/dL (5.00-40.00)
[2022-12-06 11:28] LABS: Estradiol 87.7 pg/mL; Luteinizing Hormone 7.4 mIU/mL
== END | disposition home or self-care (01) ==
LOC: LABWHC1 06:45
PROVIDERS: ATTEND Family Medicine
DX: Z00.01 Encounter for general adult medical examination with abnormal findings (principal); Z13.1 Encounter for screening for diabetes mellitus; E04.1 Nontoxic single thyroid nodule; E89.41 Symptomatic postprocedural ovarian failure; Z86.39 Personal history of other endocrine, nutritional and metabolic disease
CPT/HCPCS: 36415; 80053; 80061; 82306; 82670; 83001; 83002; 83036; 83970; 84144; 84439; 84443; 85025

== ENCOUNTER → 2023-07-14 | Outpatient (CLI) | payer BC ==
[2023-07-14 13:04] LABS: ALT 8 U/L (8-44); AST 16 U/L (13-35); Albumin 4.1 d/dL (3.8-4.9); Albumin/Globulin Ratio 1.71 Ratio (1.60-3.17); Alkaline Phosphatase 79 U/L (41-126); BUN/Creat Ratio 8.88 Ratio (12.00-20.00); Blood Urea Nitrogen 7.1 mg/dL (9.0-27.0); Carbon Dioxide 23.4 mmol/L (21.6-31.8); Chloride 104 mmol/L (96-109); Globulin 2.4 d/dL (1.6-3.3); Glucose 94 mg/dL (70-110); Sodium 139 mmol/L (135-145); T4, Free (Free Thyroxine) 1.21 ng/dL (0.80-1.80); Total Bilirubin 0.3 mg/dL (0.3-1.2); Total Protein 6.5 d/dL (6.2-8.2)
== END | disposition home or self-care (01) ==
LOC: LABWHC1 06:50
PROVIDERS: ATTEND Internal Medicine Endocrinology, Diabetes & Metabolism
DX: E04.1 Nontoxic single thyroid nodule (principal); Z86.39 Personal history of other endocrine, nutritional and metabolic disease
CPT/HCPCS: 36415; 80053; 82306; 83970; 84439; 84443

== ENCOUNTER → 2023-10-09 | Outpatient (CLI) | payer BC ==
--- NOTE | 2023-10-09 12:40 | MR ---
EXAMINATION TYPE: MR lumbar spine wo con DATE OF EXAM: 10/09/2023 11:25 AM CLINICAL INDICATION:Female, 52 years old with history of R10.9 UNSPECIFIED ABDOMINAL PAIN; PHH, Pain / Arthritis since 2019 COMPARISON: None TECHNIQUE: Multi planar, multi sequence imaging was performed utilizing: T1-weighted, T2-weighted, a nd turbo inversion recovery imaging of the lumbar spine. IV Contrast: cc . (None if empty) FINDINGS: Alignment: The lumbar vertebral bodies have preserved heights and alignment. Cord: The conus medullaris and the distal spinal cord appear unremarkable with regards to their signa l intensity and morphology. Bones/Discs: Mild degeneration changes throughout the spine with osteophyte formation and facet joint arthropathy. Disc desiccation at L5-S1. T12-L1: No evidence of significant spinal canal stenosis or neural foraminal stenosis. L1-L2: No evidence of significant spinal canal stenosis or neural foraminal stenosis. L2-L3: No evidence of significant spinal canal stenosis or neural foraminal stenosis. L3-L4: No evidence of significant spinal canal stenosis or neural foraminal stenosis. L4-L5: No evidence of significant spinal canal stenosis or neural foraminal stenosis. L5-S1: The disc is rounded posterior morphology without significant spinal canal stenosis. Facet join t arthropathy with mild bilateral neural foraminal stenosis. No significant spinal canal or neural foraminal stenosis in the remainder of the visualized levels. Other findings: None. IMPRESSION: 1. No definitive evidence of disc herniation or significant spinal canal stenosis. 2. Mild disc degeneration with associated osteoarthritic changes. No evidence for significant neural foraminal stenosis.
--- NOTE | 2023-10-09 12:54 | MR ---
EXAMINATION TYPE: MR abdomen wo con DATE OF EXAM: 10/09/2023 9:33 AM CLINICAL INDICATION:Female, 52 years old with history of R10.9 UNSPECIFIED ABDOMINAL PAIN; PHH, Abdom en pain/discomfort - Hx of umbilical hernia repair 2007 COMPARISON: MRI lumbar spine same day. TECHNIQUE: Multiplanar multi-sequence imaging was performed without contrast. IV Contrast: none FINDINGS: LOWER CHEST: Heart is mildly enlarged for size. ABDOMEN Liver: No evidence for hepatic steatosis or cirrhosis. Few scattered high T2 signal probable cysts th e largest measuring 11 mm in the right hepatic lobe with thin septation versus adjacent cyst. Additio nal areas in the left hepatic lobe measuring up tor 6 mm additional vague area measuring 5 mm on 201 image 37. Gallbladder and Bile ducts: No evidence for ductal dilation, or biliary stricture or evidence of chol edocholithiasis. The gallbladder is within normal limits. Pancreas: No ductal dilation. No evidence for solid mass. Spleen: Normal for size. Adrenal glands: Unremarkable. Kidneys: No evidence for obstructive uropathy. No suspicious renal masses. Stomach and Bowel: No evidence for bowel wall thickening or evidence for obstruction.. There is a la rge amount stool in the colon. Peritoneum: No evidence of pneumoperitoneum or free fluid. Vasculature: No aortic aneurysm. Musculoskeletal: The osseous structures appear intact. Lymph Nodes: No gross evidence for lymphadenopathy. Abdominal wall: No evidence for umbilical hernia. IMPRESSION: 1. No evidence of abdominal mass or acute abdominal process. 2. No evidence for umbilical hernia. 3. Large amount stool in the colon. Correlate for constipation. 4. Few probable hepatic cysts. Evaluation limited without IV contrast.
== END | disposition home or self-care (01) ==
LOC: RADMRIMAIN 08:35
PROVIDERS: ATTEND Family Medicine
DX: M51.36 Other intervertebral disc degeneration, lumbar region (principal); M47.816 Spondylosis without myelopathy or radiculopathy, lumbar region; K56.41 Fecal impaction
CPT/HCPCS: 72148; 74181

== ENCOUNTER 2024-01-23 08:42 | Day surgery (SDC) | payer BC ==
[2024-01-19 09:29] VITALS: BMI 24.3
[2024-01-23] MEDS: LACTATED RINGERS 1,000 ML IV SCH (09:23)
[2024-01-23 09:32] VITALS: RESP 16; TEMP 97.5
[2024-01-23] MEDS ORDERED: LIDOCAINE 1% INJ 10MG/ML (20 ML MDV) ONE (10:14)
[2024-01-23] MEDS ORDERED: PROPOFOL 10 MG/ML 20 ML VIAL IV ONE (10:14)
--- NOTE | 2024-01-23 10:39 | P.PCN ---
Date of Procedure: 01/23/24 Procedure(s) Performed: Brief history: Patient is a pleasant 53-year-old -Italian female scheduled for an elective upper endoscopy as well as colonoscopy as a part of evaluation of chronic epigastric pain and change in bowel habits Procedure performed: Esophagogastroduodenoscopy with biopsy Colonoscopy with snare polypectomy Preoperative diagnosis: Chronic epigastric pain Change in bowel habits Anesthesia: MAC Procedure: After informed consent was obtained from the patient was brought into the endoscopy unit and IV sedation was administered by anesthesia under continuous monitoring. Initially upper endoscopy was done. The Olympus GF 160 video endoscope was inserted inserted into the mouth and esophagus intubated without any difficulty and was gradually advanced into the stomach and duodenum and carefully examined. The bulb and second part of the duodenum appeared normal. The scope was then withdrawn into the stomach adequately insufflated with air and upon careful examination the antrum had linear areas of edema consistent with gastritis and biopsies were done from this area. Mucosa of the body, cardia and fundus appeared normal. The scope was then withdrawn into the esophagus. The GE junction was located at 40 cm to the incisors. It appeared regular with no erythema erosions or ulcerations. Rest of the esophagus appeared normal. Patient tolerated the procedure well. At this time the patient continued to remain sedation. Initial digital rectal examination was normal. Olympus CF 160 video colonoscope was then inserted into the rectum and gradually advanced to the cecum without any difficulty. Careful examination was performed as the scope was gradually being withdrawn. The prep was excellent. The cecum, ascending colon, transverse colon, descending colon, appeared normal. The sigmoid colon there was a 5 mm polyp removed by cold biopsy. In the proximal rectum there was a 7 mm polyp removed by cold snare polypectomy. Rest of the sigmoid colon and rectum appeared normal. Retroflexion was performed in the rectum and small internal were noted. Patient tolerated the procedure well. Impression: 1. Upper endoscopy revealed mild antral gastritis but no evidence of esophagitis or peptic ulcer disease 2. Colonoscopy revealed: a) 5 mm sigmoid colon polyp status post cold biopsy b) 7 mm proximal rectal polyp status post cold snare polypectomy c) Minor hemorrhoids Recommendations: Findings of this examination were discussed with the patient as well as family. She was advised to follow-up with the biopsy results. If the biopsy reveals adenoma, recommended repeat colonoscopy 5 years.
[2024-01-23 11:27] VITALS: BP 145/81; PULSE 83
== END 2024-01-23 11:11 | disposition home or self-care (01) ==
LOC: ORWHC2ENDO 08:42
PROVIDERS: ATTEND Internal Medicine Gastroenterology
DX: K29.50 Unspecified chronic gastritis without bleeding (principal); D12.8 Benign neoplasm of rectum; K64.9 Unspecified hemorrhoids; K63.5 Polyp of colon; G89.29 Other chronic pain; I10 Essential (primary) hypertension; E07.9 Disorder of thyroid, unspecified; J45.909 Unspecified asthma, uncomplicated; F41.9 Anxiety disorder, unspecified; F32.A Depression, unspecified; K21.9 Gastro-esophageal reflux disease without esophagitis; K58.9 Irritable bowel syndrome, unspecified; I34.0 Nonrheumatic mitral (valve) insufficiency; F17.210 Nicotine dependence, cigarettes, uncomplicated; Z79.890 Hormone replacement therapy; Z79.899 Other long term (current) drug therapy; Z98.890 Other specified postprocedural states
CPT/HCPCS: 81025; 88305; 45380; 45385; 43239; J2001; J2704

== ENCOUNTER → 2024-03-12 | Outpatient (CLI) | payer BC ==
--- NOTE | 2024-03-16 13:22 | MM ---
Reason for Exam: Screening (asymptomatic). Last mammogram was performed 2 year(s) and 3 month(s) ago. Patient History: Menarche at age 15. First Full-Term at age 20. Hormonal Contraceptives for 5 years from age 21 until age 26. Risk Values: Shira 5 year model risk: 1.2%. NCI Lifetime model risk: 8.5%. Prior Study Comparison: 09/17/2017 Bilateral Diagnostic Mammogram, [facility]. 07/21/2020 Bilateral Screening Mammogram, [facility]. 12/17/2021 Bilateral Screening Mammogram, [facility]. Tissue Density: There are scattered areas of fibroglandular density. Findings: Analyzed By CAD. Right breast: There is no suspicious group of microcalcifications or new suspicious mass. Left breast: There is no suspicious group of microcalcifications or new suspicious mass. Overall Assessment: Negative, BI-RAD 1 Management: Screening Mammogram of both breasts in [address] [facility] will attempt to contact patient to return for supplemental views and ultrasound if indicated. Patient should continue monthly self-breast exams. A clinical breast exam by your physician is recommended on an annual basis. This exam should not preclude additional follow-up of suspicious palpable abnormalities. Note on Shira scores and lifetime risk: 1. A Shira score greater than 3% is considered moderate risk. If this is the case, consider specialist referral to assess eligibility for a risk reducing agent. 2. If overall lifetime risk for the development of breast cancer is 20% or higher, the patient may qualify for future screening with alternating mammogram and breast MRI. Electronically signed and approved by: Amol Ko DO
== END | disposition home or self-care (01) ==
LOC: RADMAMWWP 12:48
PROVIDERS: ATTEND Family Medicine
DX: Z12.31 Encounter for screening mammogram for malignant neoplasm of breast (principal)
CPT/HCPCS: 77063; 77067

== ENCOUNTER → 2024-07-26 | Outpatient (CLI) | payer BC ==
[2024-07-26 10:39] LABS: BUN/Creat Ratio 9.33 Ratio (12.00-20.00); Blood Urea Nitrogen 8.4 mg/dL (9.0-27.0); Calcium 9.1 mg/dL (8.7-10.3); Carbon Dioxide 20.7 mmol/L (21.6-31.8); Chloride 108 mmol/L (96-109); Glucose 99 mg/dL (70-110); Potassium 5.3 mmol/L (3.5-5.5); Sodium 139 mmol/L (135-145)
== END | disposition home or self-care (01) ==
LOC: LABWHC1 07:00
PROVIDERS: ATTEND Internal Medicine
DX: I10 Essential (primary) hypertension (principal)
CPT/HCPCS: 36415; 80048

== ENCOUNTER → 2024-10-06 | Outpatient (CLI) | payer BC ==
[2024-10-06 10:47] LABS: Basophils # (A) 0.04 X 10*3/uL (0.00-0.10); Basophils % (A) 0.8 %; Eosinophils # (A) 0.07 X 10*3/uL (0.04-0.35); Eosinophils % (A) 1.4 %; HGB 13.7 g/dL (12.0-15.0); Lymphocytes # (A) 1.73 X 10*3/uL (0.90-5.00); Lymphocytes % (A) 35.4 %; MCHC 34.3 g/dL (32.0-37.0); MCV 90.5 FL (80.0-97.0); Mean Platelet Volume 11.3 FL (9.5-12.2); Monocytes % (A) 8.2 %; NRBC Per 100 WBC 0 X 10*3/uL (0.00-0.01); Neutrophils # (A) 2.64 X 10*3/uL (1.80-7.70); Platelet Count 248 X 10*3/uL (140-440); RBC 4.42 X 10*6/uL (4.10-5.20); WBC 4.89 X 10*3/uL (4.50-10.00)
[2024-10-06 11:26] LABS: % Iron Saturation 22.32 (12.00-45.00); ALT 7 U/L (8-44); AST 17 U/L (13-35); Albumin 3.9 g/dL (3.8-4.9); Albumin/Globulin Ratio 1.77 Ratio (1.60-3.17); Alkaline Phosphatase 76 U/L (41-126); Blood Urea Nitrogen 7.7 mg/dL (9.0-27.0); Calcium 9.1 mg/dL (8.7-10.3); Carbon Dioxide 23.9 mmol/L (21.6-31.8); Chloride 105 mmol/L (96-109); Globulin 2.2 g/dL (1.6-3.3); Glucose 95 mg/dL (70-110); Iron 75 UG/DL (50-170); LDL Cholesterol,Calculated 111.8 mg/dL (0.0-131.0); Potassium 4.3 mmol/L (3.5-5.5); Sodium 137 mmol/L (135-145); T4, Free (Free Thyroxine) 0.92 ng/dL (0.80-1.80); Total Bilirubin 0.3 mg/dL (0.3-1.2); Total Iron Binding Capacity 336 UG/DL (228-460); Total Protein 6.1 g/dL (6.2-8.2); VLDL Calculation 19.68 mg/dL (5.00-40.00)
== END | disposition home or self-care (01) ==
LOC: LABWHC1 06:59
PROVIDERS: ATTEND Nurse Practitioner Family
DX: Z00.00 Encounter for general adult medical examination without abnormal findings (principal); E61.1 Iron deficiency; E55.9 Vitamin D deficiency, unspecified; E03.9 Hypothyroidism, unspecified
CPT/HCPCS: 36415; 80053; 80061; 82306; 82728; 83540; 83550; 84439; 84443; 84481; 85025